=== PATIENT | female | born 1930 | race Caucasian/White ===

== ENCOUNTER 2021-05-13 10:31 | Emergency (ER) | payer MEDICARE, OTHER ==
[~2021-05-13] VITALS: Ht 160 cm; Wt 79.4 kg
[~2021-05-13 10:31] MED LIST: AMLO-212 PO; ATOR20TA PO; BENA20TA9 PO; DARI7.5T PO; LEVE500T9 PO; METO25TA6 PO; Magnesium Oxide PO; TRAM50TA2 PO
[2021-05-13] MEDS ORDERED: HYDROCODONE/APAP 5-325MG TABLET PO ONE (11:00)
[2021-05-13] MEDS ORDERED: DICL100G31 TP (11:01)
[2021-05-13] MEDS ORDERED: HYDROCODONE/APAP 5-325MG TABLET ONE (11:05)
--- NOTE | 2021-05-13 15:19 | NUR ---
PT SEEN BY DR SALMERON. RESULTS OF TEST REVIEWED BY MD WITH PT AND SON. PT DISCHARGED IN STABLE CONDITION.
[2021-05-13 15:20] VITALS: BP 142/98
== END 2021-05-13 15:21 | disposition home or self-care (01) ==
LOC: ER 10:31
DX: R07.81 Pleurodynia (principal); M54.50 Low back pain, unspecified; Z91.81 History of falling; Z85.038 Personal history of other malignant neoplasm of large intestine; Z90.49 Acquired absence of other specified parts of digestive tract; Z90.710 Acquired absence of both cervix and uterus; I11.9 Hypertensive heart disease without heart failure
CPT/HCPCS: 71045; 72170; 73502; A4663

== ENCOUNTER 2022-01-04 11:17 | Emergency (ER) | payer MEDICARE, OTHER ==
[~2022-01-04] VITALS: Ht 157.5 cm; Wt 74.8 kg
[~2022-01-04 11:17] MED LIST changes: +DICL100G31 TP
--- NOTE | 2022-01-04 11:25 | NUR ---
Dr Best at bedside for MSE.
[2022-01-04] MEDS ORDERED: KETOROLAC TROMETHAMINE 15 MG INJ IM ONE (11:45)
[2022-01-04] MEDS ORDERED: MAG HYDROX/AL HYDROX/SIMETH 30 ML LIQUID UDC ONE (12:09)
[2022-01-04] MEDS ORDERED: KETOROLAC TROMETHAMINE 15 MG INJ ONE (12:10)
--- NOTE | 2022-01-04 13:29 | NUR ---
Pt has been cleared for DC by ANTONIO. Patient discharged to home in stable condition. \Written and verbal after care instructions given. Patient verbalizes understanding of instructions. Stressed follow up or return to ER for worsening s/s. Pt ambulated out of ED, via cane in steady gait, accompanied by family member.
[2022-01-04 13:30] VITALS: BP 156/77
== END 2022-01-04 13:32 | disposition home or self-care (01) ==
LOC: ER 11:17
DX: S20.211A Contusion of right front wall of thorax, initial encounter (principal); R07.81 Pleurodynia; W01.190A Fall on same level from slipping, tripping and stumbling with subsequent striking against furniture, initial encounter; Y92.89 Other specified places as the place of occurrence of the external cause; F41.9 Anxiety disorder, unspecified; Z95.2 Presence of prosthetic heart valve; E11.9 Type 2 diabetes mellitus without complications; G40.909 Epilepsy, unspecified, not intractable, without status epilepticus; I11.9 Hypertensive heart disease without heart failure; Z79.899 Other long term (current) drug therapy
CPT/HCPCS: 99283; 71101; 96372; J1885; A4663